=== PATIENT | male | born 1970 | race Hispanic/Latino ===

== ENCOUNTER 2022-02-12 07:12 | Emergency (ER) | payer MEDICARE, OTHER ==
[~2022-02-12] VITALS: Ht 180.3 cm; Wt 68.0 kg
[2022-02-12 07:28] VITALS: BP 129/73
[2022-02-12] MEDS ORDERED: GUAIFENESIN-DM 200/20 MG 10 ML PO ONE (08:00)
[2022-02-12] MEDS ORDERED: ACETAMINOPHEN 500 MG TABLET PO ONE (08:00)
[2022-02-12] MEDS ORDERED: GUAIFENESIN-DM 200/20 MG 10 ML ONE (08:01)
[2022-02-12] MEDS ORDERED: ACETAMINOPHEN 500 MG TABLET ONE (08:01)
[2022-02-12] MEDS ORDERED: ACET-66 PO (08:10)
[2022-02-12] MEDS ORDERED: D-ME118S47 PO (08:10)
[2022-02-12] MEDS ORDERED: IBUP-2070 PO (08:10)
[2022-02-12] MEDS ORDERED: OSEL75 PO (08:10)
[2022-02-12] MEDS ORDERED: ONDA4TAB10 PO (08:10)
[2022-02-12] MEDS ORDERED: KETOROLAC 60 MG VIAL (30MG/ML) IM ONE (08:30)
== END 2022-02-12 08:32 | disposition home or self-care (01) ==
LOC: EDH 07:12
DX: J10.1 Influenza due to other identified influenza virus with other respiratory manifestations (principal); Z88.1 Allergy status to other antibiotic agents; Z79.899 Other long term (current) drug therapy; Z98.890 Other specified postprocedural states; Z60.2 Problems related to living alone
CPT/HCPCS: 99283; 87804 ×2; 96372; U0003; J1885